=== PATIENT | male | born 1970 | race Two or more races ===

== ENCOUNTER 2021-06-08 19:18 | Emergency (ER) | payer SELFPAY ==
[~2021-06-08] VITALS: Ht 172.7 cm; Wt 72.7 kg
[2021-06-08 19:51] VITALS: BP 132/63
== END 2021-06-08 20:35 | disposition left against medical advice (07) ==
LOC: EMS 19:18
DX: F10.10 Alcohol abuse, uncomplicated (principal); Z53.21 Procedure and treatment not carried out due to patient leaving prior to being seen by health care provider